=== PATIENT | female | born 1985 | race Caucasian/White ===

== ENCOUNTER 2018-01-12 20:44 | Emergency (ER) | payer OTHER ==
[~2018-01-12] VITALS: Ht 167.6 cm; Wt 52.2 kg
--- NOTE | ~2018-01-12 | EKG ---
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
--- NOTE | ~2018-01-12 | EKG ---
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
[~2018-01-12 20:44] MED LIST: 'TENORMIN50 MG PO; ALBUTEROL0.09 MG/A1 INH; AMOXICILLIN500 MG PO; BACTRIM DS 8001 TA1 PO; FLEXERIL10 MG PO; MOTRIN800 MG PO; PAXIL10 MG PO; PYRIDIUM200 MG PO; TENORMIN25 MG PO; TORADOL10 MG PO; ULTRAM50 MG PO; VENTOLIN,PR2 MG/5 ML PO; Veetids,V-Cill500 MG PO
[2018-01-12 21:06] LABS: BASO % 0.3 % (0.0-1.0); EOS # 0.1 10*3/uL (0.0-0.4); EOS % 0.8 % (1.0-4.0); HEMATOCRIT 44.3 % (37.0-47.0); HEMOGLOBIN 15.3 g/dl (12.0-16.0); LYMPH % 16.7 % (27.0-41.0); MEAN CORPUSCULAR HGB 29.4 pg (27.0-31.0); MEAN CORPUSCULAR HGB CONC 34.5 g/dl (33.0-37.0); MEAN PLATELET VOLUME 9.7 fl (9.6-12.3); MONO # 0.7 10*3/uL (0.1-1.0); MONO % 5.8 % (3.0-9.0); PLATELET COUNT AUTOMATED 271 10*3/uL (130-400); RED BLOOD COUNT 5.21 10*6/uL (4.10-5.10); RED CELL DISTRI WIDTH 13.2 % (0-14.5); WHITE BLOOD COUNT 11.8 10*3/uL (4.8-10.8)
[2018-01-12 21:24] LABS: ALBUMIN 3.9 gm/dl (3.1-4.5); ALKALINE PHOSPHATASE 83 U/L (45-117); BUN 8 mg/dl (7-24); CHLORIDE 104 mmol/L (98-107); CREATININE 0.65 mg/dL (0.55-1.02); POTASSIUM 2.8 mmol/L (3.5-5.1); SGOT/AST 7 IU/L (3-35); SGPT/ALT 16 U/L (12-78); SODIUM 139 mmol/L (136-145); TOTAL PROTEIN 7.5 gm/dL (6.4-8.2)
[2018-01-12 21:33] LABS: TROPONIN I < 0.015 ng/ml (<0.045)
[2018-01-12 22:11] VITALS: BP 125/80
[2018-01-12 23:33] LABS: BILIRUBIN 1+ (NEGATIVE); BLOOD NEGATIVE (NEGATIVE); CLARITY SL CLOUDY (CLEAR); COLOR YELLOW (YELLOW); GLUCOSE NEGATIVE (NEGATIVE); KETONE 3+ (NEGATIVE); LEUKO ESTERASE NEGATIVE (NEGATIVE); NITRITE NEGATIVE (NEGATIVE); SPECIFIC GRAVITY 1.025 (1.005-1.030)
[2018-01-12 23:39] LABS: EPITHELIAL CELLS 15-20; MUCOUS 1+
== END 2018-01-13 02:12 | disposition short-term general hospital (02) ==
LOC: ED 20:44
PROVIDERS: Physician Assistant
DX: R07.89 Other chest pain (principal); R94.31 Abnormal electrocardiogram [ECG] [EKG]; R11.2 Nausea with vomiting, unspecified; R42 Dizziness and giddiness; R06.02 Shortness of breath; F17.200 Nicotine dependence, unspecified, uncomplicated; Z88.6 Allergy status to analgesic agent; Z79.899 Other long term (current) drug therapy

== ENCOUNTER → 2018-02-16 | Outpatient (CLI) | payer OTHER | LOC: CARD 11:45 | DX: I35.1 Nonrheumatic aortic (valve) insufficiency (principal) ==